=== PATIENT | male | born 1985 | race Caucasian/White ===

== ENCOUNTER 2016-08-05 05:57 | Emergency (ER) | payer OTHER ==
[2016-08-05] MEDS ORDERED: ADVIL200 M3 PO (06:13)
[2016-08-05] MEDS ORDERED: TYLENOL EXTRA500 M1 PO (06:13)
[2016-08-05] MEDS ORDERED: CYCLOBENZAPRINE10 M1 PO (06:13)
[2016-08-05] MEDS ORDERED: NORCO 5/3251 TAB PO (06:15)
== END 2016-08-05 06:25 ==
LOC: EDMED 05:57
DX: S39.012A Strain of muscle, fascia and tendon of lower back, initial encounter (principal); X50.9XXA Other and unspecified overexertion or strenuous movements or postures, initial encounter; Y92.69 Other specified industrial and construction area as the place of occurrence of the external cause; Y99.0 Civilian activity done for income or pay